=== PATIENT | female | born 1960 | race Caucasian/White ===

== ENCOUNTER 2016-06-19 14:19 | Emergency (ER) | payer BC ==
[2016-06-19 15:47] VITALS: BP 150/88
--- NOTE | 2016-06-19 16:06 | UC ---
Complaint Female HPI - HPI Summary HPI Summary: Urinary urgency, frequency, and burning starting about a day ago. Feels like previous UTIs. No hx of resistant infection, last UTI some years ago. Denies fever, back pain, vomiting, or vaginal symptoms. - History Of Current Complaint Chief Complaint: UCGU Stated Complaint: POSSIBLE UTI Time Seen by Provider: 06/19/16 15:44 Hx Obtained From: Patient ?: No Onset/Duration: Gradual Onset, Lasting Days Timing: Constant Severity Initially: Mild Severity Currently: Mild Character: Burning Aggravating Factor(s): Urination - Allergies/Home Medications Allergies/Adverse Reactions: Allergies Allergy/AdvReac Type Severity Reaction Status Date / Time No Known Allergies Allergy Verified 06/19/16 15:39 PMH/Surg Hx/FS Hx/Imm Hx Cardiovascular History Of: Reports: Hypertension Cancer History Of: Reports: Breast Cancer - right 2008 - Surgical History Surgical History: None Surgery Procedure, Year, and Place: hand surgery. lumpectomy - Family History Known Family History: Negative: Blood Disorder - Social History Occupation: Employed Full-time Alcohol Use: Daily Alcohol Amount: 1 beer Substance Use Type: None Smoking Status (MU): Never Smoked Tobacco Review of Systems Constitutional: Negative Skin: Negative Eyes: Negative ENT: Negative Respiratory: Negative Cardiovascular: Negative Gastrointestinal: Negative Genitourinary: Dysuria, Frequency, Urgency Motor: Negative Neurovascular: Negative Musculoskeletal: Negative Neurological: Negative Psychological: Negative All Other Systems Reviewed And Are Negative: Yes Physical Exam Triage Information Reviewed: Yes Appearance: Well-Appearing, No Pain Distress, Well-Nourished Vital Signs: Initial Vital Signs Temp 97.9 F 06/19/16 15:39 Pulse 113 06/19/16 15:39 Resp 18 06/19/16 15:39 BP 150/88 06/19/16 15:39 Pulse Ox 98 06/19/16 15:39 Vital Signs Reviewed: Yes Eye Exam: Normal Eyes: Positive: Conjunctiva Clear ENT Exam: Normal ENT: Positive: Normal ENT inspection, Hearing grossly normal, Pharynx normal, TMs normal Dental Exam: Normal Neck exam: Normal Neck: Positive: Supple, Nontender, No Lymphadenopathy Respiratory Exam: Normal Respiratory: Positive: Chest non-tender, Lungs clear, Normal breath sounds, No respiratory distress, No accessory muscle use Cardiovascular Exam: Normal Cardiovascular: Positive: RRR, No Murmur Abdominal Exam: Normal Abdomen Description: Positive: Nontender. Negative: CVA Tenderness (R), CVA Tenderness (L) Musculoskeletal Exam: Normal Neurological Exam: Normal Neurological: Positive: Alert Psychological Exam: Normal Skin Exam: Normal Complaint Female Dx - Differential Dx/Diagnosis Provider Diagnoses: UTI Discharge - Discharge Plan Condition: Stable Disposition: HOME Prescriptions: Nitrofurantoin Monohyd Macro [Macrobid] 100 mg PO BID #[id number] cap Patient Education Materials: Urinary Tract Infection in Women (ED) Referrals: Ayaka Simpson MD [Primary Care Provider] -
== END 2016-06-19 16:14 | disposition home or self-care (01) ==
LOC: UCEAST 14:19
DX: N39.0 Urinary tract infection, site not specified (principal); I10 Essential (primary) hypertension; Z85.3 Personal history of malignant neoplasm of breast
CPT/HCPCS: 81003; 87086; 99212; G0463